=== PATIENT | male | born 1960 | race Caucasian/White ===

== ENCOUNTER → 2020-09-29 | Day surgery (SDC) | payer OTHER ==
[~2020-09-29] MED LIST: ATORVASTATIN CA20 MG PO; ELIQUIS5 MG PO; FLOMAX 0.4 MG0.4 MG PO; GLUCOPHAGE 850850 MG PO; HYDROCHLOROT TAB 25M; HYDROCODONE-AC1 EAC1 PO; LISINOPRIL40 MG PO; OMEPRAZOLE20 MG PO; SYMBICORT 16010.2 GM INH
== END | disposition home or self-care (01) ==
LOC: OR 06:04
DX: C34.90 Malignant neoplasm of unspecified part of unspecified bronchus or lung (principal); I10 Essential (primary) hypertension; E11.9 Type 2 diabetes mellitus without complications; M19.90 Unspecified osteoarthritis, unspecified site; K21.9 Gastro-esophageal reflux disease without esophagitis; F17.210 Nicotine dependence, cigarettes, uncomplicated; Z79.01 Long term (current) use of anticoagulants; Z79.891 Long term (current) use of opiate analgesic; Z79.84 Long term (current) use of oral hypoglycemic drugs; Z79.899 Other long term (current) drug therapy; Z20.822 Contact with and (suspected) exposure to COVID-19
CPT/HCPCS: 71045; 77001; 82962; C1788; J0690; J1100; J1642; J2001; J2250; J2370; J2405; J2550; J2704; J3010; J7030; J7040; U0002

== ENCOUNTER → 2021-02-09 | Outpatient (CLI) | payer OTHER | LOC: EXRD 14:28 | DX: M89.40 Other hypertrophic osteoarthropathy, unspecified site (principal); M25.50 Pain in unspecified joint; R93.6 Abnormal findings on diagnostic imaging of limbs | CPT/HCPCS: 73130; 73630 ==